=== PATIENT | male | born 1955 | race Caucasian/White ===

== ENCOUNTER → 2019-08-04 12:59 | Outpatient (CLI) | payer BC, SELFPAY ==
--- NOTE | ~2019-08-04 | CT_ITS ---
EXAMINATION: CT abdomen pelvis wo con EXAM DATE: 08/04/2019 13:20 INDICATION: Suprapubic pain. Hypertension. TECHNIQUE: Spiral CT of the abdomen and pelvis was performed without contrast. Axial, coronal and sag ittal images were reviewed. The dose-length product (DLP) for this examination was 974.33 mGy-cm. T he exposure was tailored according to patient size (auto mA exposure control), and iterative reconstr uction (ASIR) was used as additional dose reduction technique. Comparison is made to prior examinatio n from 11/06/2014. FINDINGS: Suprapubic region is unremarkable. There are 5 small right calyceal stones up to 5 mm, 3 sm all left calyceal stones. The prostate is unremarkable. The bladder is unremarkable. The liver, spl een, adrenal glands and pancreas are unremarkable. Gallbladder is unremarkable. No biliary obstruct ion. There is no retroperitoneal or pelvic lymphadenopathy. There is mild scattered arteriosclerot ic disease. Tiny umbilical fat-containing hernias. The appendix is normal. There is mild to moderate sigmoid predominant colonic diverticulosis. There is no adjacent inflammatory change to suggest diverticulitis. The stomach and small bowel are unrema rkable. There is expected amount of colonic stool. No free intraperitoneal gas. The heart is nor mal in size. There are no pericardial or pleural effusions. The lung bases are unremarkable. There are no osteoblastic or osteolytic lesions identified. IMPRESSION: 1. Small bilateral nephrolithiasis. 2. Mild to moderate colonic diverticulosis. 3. No acute findings. Reviewed, dictated and finalized at location B.
== END ==
PROVIDERS: PCP Student in an Organized Health Care Education/Training Program; Visit Provider Registered Nurse
DX: N20.0 Calculus of kidney (principal); K57.30 Diverticulosis of large intestine without perforation or abscess without bleeding; Z87.442 Personal history of urinary calculi
CPT/HCPCS: 74176

== ENCOUNTER 2024-01-30 07:43 | Outpatient (CLI) | payer MEDICARE, SELFPAY ==
--- NOTE | ~2024-01-30 | US_ITS ---
Limited Abdominal Sonogram: Real-time sonographic imaging of the right upper quadrant was performed. Clinical History: Abdominal pain Findings: The liver appears normal with no evidence of mass lesion or bile duct dilatation. Main por raine vein demonstrates normal direction of flow. The gallbladder is well distended, and appears normal with no evidence of gallstone or wall thickening. The common bile duct measures 2 mm. The visualize d pancreas, aorta, and IVC are unremarkable. Impression: No significant abnormality seen. Reviewed, dictated and finalized at location . Impression: No significant abnormality seen.
== END 2024-01-30 07:44 | disposition home or self-care (01) ==
PROVIDERS: PCP Student in an Organized Health Care Education/Training Program; Visit Provider Registered Nurse
DX: R10.11 Right upper quadrant pain (principal)
CPT/HCPCS: 76705